=== PATIENT | male | born 1970 | race Caucasian/White ===

== ENCOUNTER 2018-03-07 07:00 | Inpatient (IN) | payer OTHER ==
--- NOTE | 2018-03-03 11:05 | PREOPHP ---
DATE OF ADMISSION: 03/07/2018 REASON FOR CONSULTATION: Consultation requested by Dr. Jeremy Gray for medical evaluation and clearance of a 47-year-old gentleman about to undergo surgery. Thank you, Dr. Gray, for participating and allowing us to participate in the care of our patient. HISTORY OF PRESENT ILLNESS: Brain Hoffman is a 47-year-old gentleman, issues with his right hip, has had prior surgery on that and currently is being admitted for a total hip replacement on that side. In terms of his past medical and surgical history; from a medical standpoint had a hospitalization due to sepsis 2nd to an abscess and cellulitis ,for intravenous antibiotic treatment and from which he recovered. From a surgical standpoint, he has had right and left arthroscopic surgeries for torn labrum both hips, right and left, pilonidal cyst surgery. Also had an I and D of the abscess, as mentioned above, also had anal surgery. He has fractured his right ankle in the past. MEDICATIONS: 1. Levothyroxine or Synthroid 137 mcg a day. 2. Lipitor 20 mg a day. 3. Cymbalta 60 mg a day. 4. Singulair 10 mg a day. 5. Wellbutrin 450 mg daily. ALLERGIES: HE IS NOT ALLERGIC TO ANY MEDICATIONS. SOCIAL HISTORY: The patient is , has a daughter. He does not smoke or drink alcohol or coffee, is employed and usually has no difficulty sleeping at night. FAMILY HISTORY: Father in his 30s with pancreatic cancer. Mother in her 70s in good health. One sister in good health. There is family history of diabetes, cancer, hypertension, stroke and thyroid issues. REVIEW OF SYSTEMS HEENT: Denies any significant headaches. CARDIORESPIRATORY: Denies any chest pain or shortness of breath. GASTROINTESTINAL: No melena or hematemesis. GENITOURINARY: No urgency or frequency. MUSCULOSKELETAL: Positive for right hip pain. NEUROPSYCHIATRIC: Well controlled with his current medications. GENERAL HEALTH: As above. PHYSICAL EXAMINATION: VITAL SIGNS: The patient's blood pressure was 124/72, pulse was 76 and regular, respirations were 18, temperature 98.8. Height 5 feet 6 -1/2 inches, weight 198.4 pounds. GENERAL: The patient was noted to be a well-developed, well-nourished male, alert and cooperative, in no apparent acute distress, oriented to time, place, and person. HEAD, EARS, EYES, NOSE AND THROAT: Head was atraumatic. Eyes: Pupils were equal, reactive to light and accommodation. Fundi were benign. Tympanic membranes were unremarkable. Nose was negative. Mouth was unremarkable. Fair oral hygiene was present. NECK: Supple without any rigidity. Trachea was midline. Thyroid was unremarkable. Neck veins were flat. Carotid pulses were equal. No bruits were heard. BACK: Unremarkable. CHEST: Symmetrical. BREASTS AND AXILLARY: Did not reveal any masses. LUNGS: Clear to percussion and auscultation. HEART: PMI was 5th intercostal space at the midclavicular line. A regular sinus rhythm was noted. No significant murmurs, rubs, or gallops being elicited. ABDOMEN: Soft, good bowel sounds were noted. No significant organomegaly, masses, or tenderness. GENITALIA: Normal male external genitalia. RECTAL AND PROSTATIC: Done within the year was unremarkable. Did not reveal any masses. EXTREMITIES: Did not reveal any clubbing, edema or cyanosis. Peripheral pulses were physiologic. SKIN: Moist and warm without any eruptions. No gross lymphadenopathy was noted. NEUROLOGIC: Grossly intact. IMPRESSION: 1. Degenerative joint disease, right hip. 2. Hypothyroidism. 3. Hyperlipidemia. 4. Allergies/asthma. 5. Anxiety/depression, stable. 6. Stable health. LABORATORY DATA: Review of laboratory and other data revealed the following: The patient's electrolytes were normal. Random glucose was 111, BUN, creatinine, uric acid, calcium proteins were normal. Liver function tests revealed minimal elevations of ALT and AST. Cholesterol random was normal at 158, magnesium, CBC, UA, PT and PTT were normal. Patient's EKG was normal and the patient's chest x-ray did not reveal any acute infiltrates or any acute cardiopulmonary changes being noted. DISCUSSION: Dr. Gray, I see no contraindication in this patient undergoing current proposed surgery under desired form of anesthesia. I feel he is a suitable candidate at this particular point in time and I will be more than happy to follow him along with you during his stay at [facility]. Thank you again, Dr. Gray for participating and allowing us to participate in the care of our patient. Dictated By: LARRY VELAZQUEZ/YOMAIRA Conf#: [id number] [facility]#: [id number] MTDD
[2018-03-04 15:26] VITALS: Ht 170.2 cm; Wt 86.4 kg
[~2018-03-07] VITALS: Ht 170.2 cm; Wt 86.4 kg
[2018-03-07] VITALS (28 sets, daily range): BP systolic 113–156; BP diastolic 63–99; PULSE 81–113; RESP 14–26
--- NOTE | 2018-03-07 05:46 | HPN ---
Date/Time of Note Date/Time of Note DATE: 03/07/18 TIME: 05:46 Interval H&P Admission Note Pt. seen H&P reviewed: No system changes DAVIDSON HEBERT MD Mar 07, 2018 05:46
--- NOTE | 2018-03-07 05:48 | OPR ---
Date/Time of Note Date/Time of Note DATE: 03/07/18 TIME: 05:46 Operative Report Procedure Date: Mar 07, 2018 Preoperative Diagnosis Hip arthritis following hip arthroscopy, right Postoperative Diagnosis Right hip arthritis following hip arthroscopy Operation/Procedure Performed 1. Right total hip replacement in a patient status post hip arthroscopy 2. Injection of PRP Surgeon see signature line [employer] Consultant Brain Ramirez DO Anesthesia Type: general Estimated Blood Loss: 150 - 200 ml's Transfusion none Specimen None Grafts/Implants See op note Complications none Pt Condition Post Procedure: stable Disposition: PACU Procedure Description JET SKI MECHANIC SURGEON: Brain Messer DO was asked to be present at my request as a result of the complexity associated with this procedure including positioning of the extremity, positioning of the instrumentation and protection of the neurovascular structures. In my opinion, the assistance offered by a surgical nurse is insufficient and Dr. Messer should be compensated for his time. PROCEDURE IN DETAIL: Following the administration of general endotracheal anesthesia supplemented with a spinal anesthetic, the patient was placed in the supine position. The right lower extremity then prepped and draped in the usual sterile fashion. A gas appliance repairer radiograph was obtained for preliminary limb length and femoral size as well as acetabular size. Prior to sterile prep and drape the forearm was then prepped and 60 cc of blood were pulled from the vein. The blood was then given to the medical collections representative to create a PRP infusion. A lateral incision was then made exposing the tensor fascia the fascia was incised the tensor was retracted laterally and the vessels were cauterized. The anterior capsule was then identified and exposed. Severe changes were noted with scarring secondary to the prior arthroscopic procedure. Some of the sutures were removed. A capsulectomy was then performed and the femoral head was then evaluated. Severe arthritic changes were noted with several medial osteophytes as well as an acetabular osteophyte. A femoral head cut was then made in the appropriate degree of version and i nclination. The acetabulum was then exposed and a capsulectomy and labrectomy were completed. The prior scarring from the arthroscopic procedure was noted. The central portion was then entered and serially reamed up to the 53 mm size. A Depuy [place] cup which was 54 mm in size with a standard liner was then fit into position with solid fixation. A 30 mm screw was used for additional fixation. Attention was then directed to the femur, the femur was exposed and prepared. The canal was entered and serially reamed up to the size 5 Actis. The canal was irrigated and the PRP solution was then infiltrated down the canal. A size 5 mm Depuy Act[place] stem was then inserted with solid fixation. A 36 mm, +5 mm femoral head, which was ceramic was then inserted. The leg was taken through full range of motion with no evident instability. In addition, radiographs revealed excellent position with reproduction of the limb lengths within a millimeter. The wound was irrigated thoroughly. The wound was then closed in layers and a Prenio for the final cover. This was watertight. Estimated blood loss was procedure was 150 cc. Postoperative radiographs will be obtained in the recovery room. DAVIDSON HEBERT MD Mar 07, 2018 05:47
[~2018-03-07 07:00] MED LIST: BUPR-187 PO; CEFAZOLIN 2 GM/50 ML (PMX) 50 ML IVPB ONE; DEXAMETHASONE 1 MG TAB PO ONE; FLUO20CA38 PO; GABAPENTIN 300 MG CAP PO ONE; MONT10TA21 PO; SOD CHLORIDE 0.9% 100 ML, TRANEXAMIC ACID 3,000 MG IRR ONE; TRANEXAMIC ACID 1,000 MG in DEXTROSE 5% 100 ML IVPB ONE
[2018-03-07] MEDS ORDERED: PROPOFOL 20 ML ONE (08:22)
[2018-03-07] MEDS ORDERED: NEOSTIGMINE 3 MG/3 ML SYRINGE ONE (08:22)
[2018-03-07] MEDS ORDERED: CEFAZOLIN 1 GM INJ ONE (08:22)
[2018-03-07] MEDS ORDERED: ROCURONIUM 50 MG INJ ONE (08:22)
[2018-03-07] MEDS ORDERED: GLYCOPYRROLATE 0.4 MG INJ ONE (08:22)
[2018-03-07] MEDS ORDERED: ONDANSETRON 4 MG INJ ONE (08:24)
[2018-03-07] MEDS ORDERED: MIDAZOLAM 1 MG/ML 2 ML INJ ONE (08:24)
[2018-03-07] MEDS ORDERED: FENTAnyl 50 MCG/ML VIAL ONE (08:24)
[2018-03-07] MEDS ORDERED: BUPIVACAINE 0.5% (SDV) 30 ML, morphine SULFATE (PF) 8 MG, EPINEPHrine 0.3 MG, KETOROLAC... IRR SCH ×7 (09:00)
[2018-03-07] MEDS ORDERED: SUGAMMADEX SODIUM 200 MG/2 ML VIAL IV ONE (09:01)
[2018-03-07] MEDS ORDERED: MONT10TA21 PO (09:02)
[2018-03-07] MEDS ORDERED: ATOR20TA38 PO (09:02)
[2018-03-07] MEDS ORDERED: LEVO137T26 PO (09:03)
[2018-03-07] MEDS ORDERED: DULO60CA6 PO (09:04)
[2018-03-07] MEDS ORDERED: BUPR-75 PO (09:04)
--- NOTE | 2018-03-07 09:23 | PREAC ---
Date/Time of Note Date/Time of Note DATE: 03/07/18 TIME: 09:21 Anesthesia Eval and Record Evaluation Time Pre-Procedure Interview DATE: 03/07/18 TIME: 09:21 Age 47 Sex male NPO: 8 hrs Preoperative diagnosis RIGHT HIP PRIMARY OA Planned procedure RIGHT TOTAL HIP ARTHROPLASTY Past Medical History Past Medical History: Includes (PSEUDOCHOLIESTERASE DEFICIENCY) Cardio: Dyslipidemia Endo: Hypothyroid Pulm: Asthma GI: Obesity Surgery & Anesthesia Issues No known issue Meds Anticoagulation: No Beta Anjali within 24 hr: No Reason Beta Anjali not given: Pt. not on B-Anjali Reported Medications Bupropion Hcl* (Wellbutrin XL*) 150 Mg Tab.sr.24h, 450 MG PO DAILY, TAB.SA 03/07/18 Duloxetine Hcl* (Cymbalta*) 60 Mg Capsule.dr, 60 MG PO DAILY, CAP 03/07/18 Levothyroxine Sodium* (Levoxyl*) 137 Mcg Tablet, 137 MCG PO QHS, #30 TAB 03/07/18 Atorvastatin Calcium* (Atorvastatin Calcium*) 20 Mg Tablet, 20 MG PO QHS, #30 TAB 03/07/18 Montelukast Sodium* (Singulair*) 10 Mg Tablet, 10 MG PO QHS, #30 TAB 03/07/18 Discontinued Reported Medications Bupropion Hcl* (Wellbutrin SR*) 100 Mg Tablet.sa, 100 MG PO DAILY, TAB.SA 11/06/13 Fluoxetine Hcl* (Prozac*) 20 Mg Capsule, 20 MG PO DAILY, CAP 11/06/13 Montelukast Sodium* (Singulair*) 10 Mg Tablet, 10 MG PO HS, TAB 11/06/13 Current Medications Bupivacaine HCl/ Morphine Sulfate/ Epinephrine/ Ketorolac Tromethamine/ Clonidine/Sodium Chloride/ Vancomycin HCl INTRA-OP IRR ; Start 03/07/18 at 09:00 Meds reviewed: Yes Allergies Coded Allergies: acetaminophen (Verified Allergy, Intermediate, ITCHING, 03/07/18) oxycodone (Verified Allergy, Intermediate, 03/07/18) itching Allergies Reviewed: Yes Labs/Studies Labs Reviewed: Reviewed by anesthesiologist test: N/A Studies: ECG (NL), CXR (NAPD) Pre-procedure Exam Last vitals Vital Signs Date Temp Pulse Resp B/P (MAP) Pulse Ox O2 O2 Flow FiO2 Time Delivery Rate 03/07/18 97.3 87 16 124/83 97 Room Air 09:04 (97) Airway: Adequate mouth opening, Adequate thyromental dist Mallampati: Mallampati II Teeth: Normal Lung: Normal Heart: Normal ASA Physical Status ASA physical status: 2 Emergency: None Planned Anesthetic General/MAC: ETT Neuraxial: Spinal Planned Pain Management Sub-arachniod narcotics, Parenteral pain med Pre-operative Attestations Prior to commencing anesthesia and surgery, the patient was re-evaluated, there was verification of: *The patient's identity *The results of appropriate recent lab work and preoperative vital signs *The above evaluation not changing prior to induction *Anesthetic plan, risk benefits, alternative and complications discussed with patient/family; questions answered; patient/family understands, accepts and wishes to proceed. Sukhdev Birmingham M.D. Mar 07, 2018 09:23
[2018-03-07] MEDS ORDERED: CA CHLORIDE (GM) 10% 10 ML INJ ONE (09:28)
[2018-03-07] MEDS ORDERED: POLYMYXIN/BACITRACIN 1L IRRIG ONE (09:28)
[2018-03-07] MEDS ORDERED: THROMBIN 5000 UNIT VIAL ONE (09:28)
[2018-03-07] MEDS ORDERED: morphine SULFATE/PF (10 MG/10 ML) INJ ONE (09:38)
[2018-03-07] MEDS ORDERED: PHENYLephrine 10 MG INJ ONE (10:18)
[2018-03-07] MEDS ORDERED: EPHEDrine SULFATE 50 MG/5 ML SYG IV PRN (10:30)
[2018-03-07] MEDS ORDERED: HYDROmorphONE 0.5 MG/0.5 ML SYG IV PRN ×2 (10:30)
[2018-03-07] MEDS ORDERED: MEPERIDINE 25 MG INJ IV PRN (10:30)
[2018-03-07] MEDS ORDERED: hydrALAzine 20 MG INJ IV PRN (10:30)
[2018-03-07] MEDS ORDERED: LABETALOL HCL 20MG INJ IV PRN (10:30)
[2018-03-07] MEDS ORDERED: TRIMETHOBENZAMIDE 100 MG/ML VIAL IM PRN ×2 (10:30)
[2018-03-07] MEDS ORDERED: HYDROmorphONE 1 MG/5 ML IV SYRINGE IV PRN ×3 (10:30)
[2018-03-07] MEDS ORDERED: ZOLPIDEM 5 MG TAB PO PRN ×2 (10:30→21:00)
[2018-03-07] MEDS ORDERED: NALOXONE (0.4 MG/ML) INJ IV PRN (10:30)
[2018-03-07] MEDS ORDERED: ONDANSETRON 4 MG INJ IV PRN ×3 (10:30→11:30)
[2018-03-07] MEDS ORDERED: DIPHENHYDRAMINE 50 MG INJ IV PRN ×3 (10:30→11:30)
[2018-03-07] MEDS ORDERED: NALBUPHINE HCL (10 MG/1 ML) INJ IV PRN (10:30)
[2018-03-07] MEDS ORDERED: IPRATROPIUM (NEB) 0.5 MG/2.5 ML AMP HHN PRN (10:30)
[2018-03-07] MEDS ORDERED: KETOROLAC 30 MG INJ IV PRN (10:30)
[2018-03-07] MEDS ORDERED: FENTAnyl 50 MCG/ML VIAL IV PRN ×3 (10:30)
[2018-03-07] MEDS ORDERED: MIDAZOLAM 1 MG/ML 2 ML INJ IV PRN (10:30)
[2018-03-07] MEDS ORDERED: ALBUTEROL 0.083% (NEB) 2.5 MG/3 ML AMP HHN PRN (10:30)
[2018-03-07] MEDS ORDERED: DEXAMETHASONE 4 MG/ML 5 ML INJ ONE (10:31)
--- NOTE | 2018-03-07 11:18 | PDOCDIS ---
Discharge Instructions DIAGNOSIS Discharge Diagnosis Hip arthritis CONDITION [id number] Patient Condition: Acmro0h Good HOME CARE INSTRUCTIONS: [id number] Diet Instructions: [id number] Regular ACTIVITY: [id number] Activity Restrictions: [id number] Slowly Increase Activity Keep Limb Elevated [id number] Bathing Restrictions: [id number] Shower FOLLOW UP/APPOINTMENTS Follow-up Plan two weeks SCHOOL/WORK RELEASE May return to School/Work with: With Restrictions School/Work Release Comment: No hip extension for 6-week DAVIDSON HEBERT MD Mar 07, 2018 11:18
--- NOTE | 2018-03-07 11:28 | PAC ---
Date/Time of Note Date/Time of Note DATE: 03/07/18 TIME: 11:28 Post-Anesthesia Notes Post-Anesthesia Note Last documented vital signs Vital Signs Date Temp Pulse Resp B/P (MAP) Pulse Ox O2 O2 Flow FiO2 Time Delivery Rate 03/07/18 97.3 87 16 124/83 97 Room Air 11:28 (97) Activity: WNL Respiratory function: WNL Cardiovascular function: WNL Mental status: Baseline Pain reasonably controlled: Yes Hydration appropriate: Yes Nausea/Vomiting absent: Yes Sukhdev Birmingham M.D. Mar 07, 2018 11:28
[2018-03-07] MEDS ORDERED: HYDROmorphONE 1 MG/ML SYG IV PRN (11:30)
[2018-03-07] MEDS ORDERED: NACL 0.9% 3 ML SYG IV SCH (11:30)
[2018-03-07] MEDS ORDERED: KETOROLAC 15 MG INJ IV PRN (11:30)
[2018-03-07] MEDS ORDERED: oxyCODONE 5 MG TAB PO PRN ×3 (11:30)
[2018-03-07] MEDS ORDERED: TRANEXAMIC ACID 1,000 MG in SOD CHLORIDE 0.9% 100 ML IVPB SCH (11:30)
[2018-03-07] MEDS ORDERED: CEFAZOLIN 1 GM/50 ML (PMX) 50 ML IVPB ONE (11:48)
[2018-03-07] MEDS: CEFAZOLIN 1 GM/50 ML (PMX) 50 ML IVPB SCH ×2 (11:56→18:43)
[2018-03-07] MEDS ORDERED: ACETAMINOPHEN 500 MG TAB ONE (11:58)
[2018-03-07] MEDS: ACETAMINOPHEN 500 MG TAB PO SCH ×2 (12:15→17:51)
[2018-03-07] MEDS: DEXAMETHASONE 2 MG TAB PO SCH ×3 (12:28→23:31)
--- NOTE | 2018-03-07 13:05 | NUR ---
NRSG NOTE Pt received to room 409. A/ox4. Right hip with prenio clear dressing. Dry and intact. Kessler catheter with clear yellow urine and draining to gravity. Pt on 2L 02 saturating 98%. Jevon hose to bilateral lower extremity removed and skin check done SCD to bilateral lower extremity. Pt denies pain. Oriented pt to call light and to bed alarm. Bed in lowest position and call light within reach.
[2018-03-07] MEDS ORDERED: traMADol 50 MG TAB PO PRN (13:30)
[2018-03-07] MEDS ORDERED: LACTATED RINGER'S 1,000 ML IV SCH (13:30)
--- NOTE | 2018-03-07 17:35 | CONS ---
Consult Date/Type/Reason Admit Date/Time Mar 07, 2018 at 07:58 Initial Consult Date 02/28/2018 Type of Consultation: internal medicine Reason for Consultation pre-op medical evaluation and clearance Requesting Provider: DAVIDSON HEBERT MD Date/Time of Note DATE: 03/07/18 TIME: 17:29 Subjective comfortable post op Objective Vitals Vital Signs Date Temp Pulse Resp B/P (MAP) Pulse Ox O2 O2 Flow FiO2 Time Delivery Rate 03/07/18 98.0 97 18 124/75 98 Nasal 2.0 14:39 (91) Cannula Exam vital signs stable HEENT negative lungs clear heart regular rhythm Results/Medications Result Diagram: 03/07/18 1225 Results 24 hrs Laboratory Tests Test 03/07/18 12:25 White Blood Count 9.6 Red Blood Count 4.40 L Hemoglobin 12.8 L Hematocrit 38.3 L Mean Corpuscular Volume 87.0 Mean Corpuscular Hemoglobin 29.1 Mean Corpuscular Hemoglobin Concent 33.4 Red Cell Distribution Width 12.2 Platelet Count 188 Mean Platelet Volume 9.2 Immature Granulocytes % 0.700 H Neutrophils % 78.3 H Lymphocytes % 17.1 Monocytes % 3.2 Eosinophils % 0.5 Basophils % 0.2 Nucleated Red Blood Cells % 0.0 Immature Granulocytes # 0.070 H Neutrophils # 7.5 Lymphocytes # 1.7 Monocytes # 0.3 Eosinophils # 0.1 Basophils # 0.0 Nucleated Red Blood Cells # 0.0 Home Meds Reported Medications Bupropion Hcl* (Wellbutrin XL*) 150 Mg Tab.sr.24h, 450 MG PO DAILY, TAB.SA 03/07/18 Duloxetine Hcl* (Cymbalta*) 60 Mg Capsule.dr, 60 MG PO DAILY, CAP 03/07/18 Levothyroxine Sodium* (Levoxyl*) 137 Mcg Tablet, 137 MCG PO QHS, #30 TAB 03/07/18 Atorvastatin Calcium* (Atorvastatin Calcium*) 20 Mg Tablet, 20 MG PO QHS, #30 TAB 03/07/18 Montelukast Sodium* (Singulair*) 10 Mg Tablet, 10 MG PO QHS, #30 TAB 03/07/18 Discontinued Reported Medications Bupropion Hcl* (Wellbutrin SR*) 100 Mg Tablet.sa, 100 MG PO DAILY, TAB.SA 11/06/13 Fluoxetine Hcl* (Prozac*) 20 Mg Capsule, 20 MG PO DAILY, CAP 11/06/13 Montelukast Sodium* (Singulair*) 10 Mg Tablet, 10 MG PO HS, TAB 11/06/13 Medications Current Medications Hydromorphone HCl (Dilaudid) 0.2 mg Q2H PRN IV .PAIN 1-5; Start 03/07/18 at 10:30; Stop 03/08/18 at 09:41 Hydromorphone HCl (Dilaudid) 0.4 mg Q2H PRN IV .PAIN 6-10; Start 03/07/18 at 10:30; Stop 03/08/18 at 09:41 Ketorolac Tromethamine (Toradol) 30 mg Q6H PRN IV .PAIN 6-10; Start 03/07/18 at 10:30; Stop 03/08/18 at 09:41 Diphenhydramine HCl (Benadryl) 25 mg Q4H PRN IV .PRURITUS; Start 03/07/18 at 10:30; Stop 03/08/18 at 09:41 Nalbuphine HCl (Nubain) 10 mg Q4H PRN IV .PRURITUS; Start 03/07/18 at 10:30; Stop 03/08/18 at 09:41 Ondansetron HCl (Zofran Inj) 4 mg Q6H PRN IV .NAUSEA/VOMITING; Start 03/07/18 a t 10:30; Stop 03/08/18 at 09:41 Trimethobenzamide HCl (Tigan) 200 mg Q6H PRN IM .NAUSEA/VOMITING; Start 03/07/18 at 10:30; Stop 03/08/18 at 09:41 Zolpidem Tartrate (Ambien) 5 mg HS MAY REPEAT X 1 PRN PO .INSOMNIA; Start 03/07/18 at 10:30; Stop 03/08/18 at 09:41 Naloxone HCl (Narcan) 0.2 mg Q2M PRN IV .RESP RATE; Start 03/07/18 at 10:30; Stop 03/08/18 at 09:41 Miscellaneous Information (* Miscellaneous Pharmacy Order) DURAMORPH: 0.2 MG SPI... GIVEN NEURAXIAL XX ; Start 03/07/18 at 10:30 Atorvastatin Calcium (Lipitor) 20 mg QHS PO ; Start 03/07/18 at 21:00 Bupropion HCl (Wellbutrin Xl) 450 mg DAILY PO ; Start 03/08/18 at 09:00 Duloxetine HCl (Cymbalta) 60 mg DAILY PO ; Start 03/08/18 at 09:00 Levothyroxine Sodium (Synthroid) 137 mcg QHS PO ; Start 03/07/18 at 21:00 Montelukast Sodium (Singulair) 10 mg QHS PO ; Start 03/07/18 at 21:00 Cefazolin Sodium 50 ml @ 100 mls/hr Q8H IVPB Last administered on 03/07/18at 11:56; Admin Dose 100 MLS/HR; Start 03/07/18 at 11:30; Stop 03/08/18 at 03:59 Senna/Docusate Sodium (Senokot-S) 1 tab BID PO ; Start 03/07/18 at 21:00 Dexamethasone (Decadron) 2 mg Q6 PO Last administered on 03/07/18at 12:28; Admin Dose 2 MG; Start 03/07/18 at 12:00; Stop 03/08/18 at 06:01 Gabapentin (Neurontin) 300 mg HS PO ; Start 03/07/18 at 21:00 Acetaminophen (Tylenol Tab) 500 mg Q6 PO Last administered on 03/07/18at 12:15; Admin Dose 500 MG; Start 03/07/18 at 12:00 Hydromorphone HCl (Dilaudid) 1 mg Q4H PRN IV PAIN; Start 03/07/18 at 11:30 Ondansetron HCl (Zofran Inj) 4 mg Q6H PRN IV NAUSEA; Start 03/07/18 at 11:30 Diphenhydramine HCl (Benadryl) 25 mg Q6H PRN IV ITCHING; Start 03/07/18 at 11:30 IV Flush (NS 3 ml) 3 ml per protocol IV ; Start 03/07/18 at 11:30 Aspirin (Ecotrin) 325 mg DAILY PO ; Start 03/08/18 at 09:00 Ketorolac Tromethamine (Toradol) 15 mg Q6H PRN IV PAIN; Start 03/08/18 at 09:41; Stop 03/11/18 at 09:40 Tramadol HCl (Ultram) 50 mg Q6H PRN PO MODERATE PAIN LEVEL 4-6; Start 03/07/18 at 13:30 Lactated Ringer's 1,000 ml @ 50 mls/hr Q20H IV Last administered on 03/07/18at 13:43; Admin Dose 50 MLS/HR; Start 03/07/18 at 13:30 Zolpidem Tartrate (Ambien) 10 mg HS PRN PO INSOMNIA; Start 03/08/18 at 21:00 Assessment/Plan Hospital Course (Demo Recall) post -op hip replacement with hypothyroidism hyperlipidemia doing well Assessment/Plan (Daily) pre-op meds reordered will follow with you thank you LARRY Morejon MD Mar 07, 2018 17:35
--- NOTE | 2018-03-07 18:34 | NUR ---
END OF SHIFT NOTE Denied pain during shift. Kessler catheter draining to gravity. Tolerated regular diet well. Vitals stable. Ice applied to right hip. SCD to bilateral lower extremity. Bed in lowest position and call light within reach.
[2018-03-07] MEDS ORDERED: GABAPENTIN 300 MG CAP PO SCH (21:00)
[2018-03-07] MEDS ORDERED: MONTELUKAST 10 MG TAB PO SCH (21:00)
[2018-03-07] MEDS ORDERED: LEVOTHYROXINE 137 MCG TAB PO SCH (21:00)
[2018-03-07] MEDS ORDERED: ATORVASTATIN 20 MG TAB PO SCH (21:00)
[2018-03-07] MEDS: SENNA/DOCUSATE NA (8.6MG/50MG) TAB PO SCH (21:26)
[2018-03-08 00:02] VITALS: BP 107/69; PULSE 100; RESP 20
[2018-03-08] MEDS: CEFAZOLIN 1 GM/50 ML (PMX) 50 ML IVPB SCH (03:47)
--- NOTE | 2018-03-08 05:46 | PN ---
Date/Time of Note Date/Time of Note DATE: 03/08/18 TIME: 05:45 Subjective Awake and alert with minimal complaints Objective Vitals Vital Signs Date Temp Pulse Resp B/P (MAP) Pulse Ox O2 O2 Flow FiO2 Time Delivery Rate 03/08/18 98.3 100 20 107/69 Nasal 00:02 (82) Cannula 03/07/18 2.0 15:45 03/07/18 99 15:00 Intake and Output 03/07/18 03/07/18 03/08/18 1414:59 22:59 06:59 IntakeIntake Total 2560 ml 1040 ml 880 ml OutputOutput Total 300 ml 400 ml 2100 ml BalanceBalance 2260 ml 640 ml -1220 ml Wound is clean and dry. Neurologically intact. No signs of DVT. Results Result Diagram: 03/07/18 1225 Medications Medications Current Medications Hydromorphone HCl (Dilaudid) 0.2 mg Q2H PRN IV .PAIN 1-5; Start 03/07/18 at 10:30; Stop 03/08/18 at 09:41 Hydromorphone HCl (Dilaudid) 0.4 mg Q2H PRN IV .PAIN 6-10; Start 03/07/18 at 10:30; Stop 03/08/18 at 09:41 Ketorolac Tromethamine (Toradol) 30 mg Q6H PRN IV .PAIN 6-10 Last administered on 03/08/18at 00:35; Admin Dose 30 MG; Start 03/07/18 at 10:30; Stop 03/08/18 at 09:41 Diphenhydramine HCl (Benadryl) 25 mg Q4H PRN IV .PRURITUS; Start 03/07/18 at 10:30; Stop 03/08/18 at 09:41 Nalbuphine HCl (Nubain) 10 mg Q4H PRN IV .PRURITUS; Start 03/07/18 at 10:30; Stop 03/08/18 at 09:41 Ondansetron HCl (Zofran Inj) 4 mg Q6H PRN IV .NAUSEA/VOMITING; Start 03/07/18 at 10:30; Stop 03/08/18 at 09:41 Trimethobenzamide HCl (Tigan) 200 mg Q6H PRN IM .NAUSEA/VOMITING; Start 03/07/18 at 10:30; Stop 03/08/18 at 09:41 Zolpidem Tartrate (Ambien) 5 mg HS MAY REPEAT X 1 PRN PO .INSOMNIA; Start 03/07/18 at 10:30; Stop 03/08/18 at 09:41 Naloxone HCl (Narcan) 0.2 mg Q2M PRN IV .RESP RATE; Start 03/07/18 at 10:30; Stop 03/08/18 at 09:41 Miscellaneous Information (* Miscellaneous Pharmacy Order) DURAMORPH: 0.2 MG SPI... GIVEN NEURAXIAL XX ; Start 03/07/18 at 10:30 Atorvastatin Calcium (Lipitor) 20 mg QHS PO Last administered on 03/07/18 21:26; Admin Dose 20 MG; Start 03/07/18 at 21:00 Bupropion HCl (Wellbutrin Xl) 450 mg DAILY PO ; Start 03/08/18 at 09:00 Duloxetine HCl (Cymbalta) 60 mg DAILY PO ; Start 03/08/18 at 09:00 Levothyroxine Sodium (Synthroid) 137 mcg QHS PO Last administered on 03/07/18 21:27; Admin Dose 137 MCG; Start 03/07/18 at 21:00 Montelukast Sodium (Singulair) 10 mg QHS PO Last administered on 03/07/18 21:41; Admin Dose 10 MG; Start 03/07/18 at 21:00 Senna/Docusate Sodium (Senokot-S) 1 tab BID PO Last administered on 03/07/18 21:26; Admin Dose 1 TAB; Start 03/07/18 at 21:00 Dexamethasone (Decadron) 2 mg Q6 PO Last administered on 03/07/18at 23:31; Admin Dose 2 MG; Start 03/07/18 at 12:00; Stop 03/08/18 at 06:01 Gabapentin (Neurontin) 300 mg HS PO Last administered on 03/07/18 21:27; Admin Dose 300 MG; Start 03/07/18 at 21:00 Acetaminophen (Tylenol Tab) 500 mg Q6 PO Last administered on 03/07/18at 17:51; Admin Dose 500 MG; Start 03/07/18 at 12:00 Hydromorphone HCl (Dilaudid) 1 mg Q4H PRN IV PAIN; Start 03/07/18 at 11:30 Ondansetron HCl (Zofran Inj) 4 mg Q6H PRN IV NAUSEA; Start 03/07/18 at 11:30 Diphenhydramine HCl (Benadryl) 25 mg Q6H PRN IV ITCHING; Start 03/07/18 at 11:30 IV Flush (NS 3 ml) 3 ml per protocol IV ; Start 03/07/18 at 11:30 Aspirin (Ecotrin) 325 mg DAILY PO ; Start 03/08/18 at 09:00 Ketorolac Tromethamine (Toradol) 15 mg Q6H PRN IV PAIN; Start 03/08/18 at 09:41; Stop 03/11/18 at 09:40 Tramadol HCl (Ultram) 50 mg Q6H PRN PO MODERATE PAIN LEVEL 4-6; Start 03/07/18 at 13:30 Lactated Ringer's 1,000 ml @ 50 mls/hr Q20H IV Last administered on 03/07/18at 13:43; Admin Dose 50 MLS/HR; Start 03/07/18 at 13:30 Zolpidem Tartrate (Ambien) 10 mg HS PRN PO INSOMNIA; Start 03/08/18 at 21:00 VTE Prophylaxis Risk score (from Nsg)>0 risk: 10 SCD applied (from Nsg): Yes Lines/Catheters IV Catheter Type: Saline Lock Kessler in Place: No Assessment/Plan Assessment/Plan Assessment: Status post total hip replacement Plan: He will mobilize today and be discharged once cleared by therapy DAVIDSON HEBERT MD Mar 08, 2018 05:46
--- NOTE | 2018-03-08 05:46 | DS ---
Date/Time of Note Date/Time of Note DATE: 03/08/18 TIME: 05:46 Discharge Summary Admission/Discharge Info Admit Date/Time Mar 07, 2018 at 07:58 Discharge Date/Time 03/08/2018 after therapy Discharge Diagnosis Hip arthritis Patient Condition: Good Hospital Course Admitted and underwent uncomplicated procedure. Discharged home after clearance by therapy Home Meds Reported Medications Bupropion Hcl* (Wellbutrin XL*) 150 Mg Tab.sr.24h, 450 MG PO DAILY, TAB.SA 03/07/18 Duloxetine Hcl* (Cymbalta*) 60 Mg Capsule.dr, 60 MG PO DAILY, CAP 03/07/18 Levothyroxine Sodium* (Levoxyl*) 137 Mcg Tablet, 137 MCG PO QHS, #30 TAB 03/07/18 Atorvastatin Calcium* (Atorvastatin Calcium*) 20 Mg Tablet, 20 MG PO QHS, #30 TAB 03/07/18 Montelukast Sodium* (Singulair*) 10 Mg Tablet, 10 MG PO QHS, #30 TAB 03/07/18 Discontinued Reported Medications Bupropion Hcl* (Wellbutrin SR*) 100 Mg Tablet.sa, 100 MG PO DAILY, TAB.SA 11/06/13 Fluoxetine Hcl* (Prozac*) 20 Mg Capsule, 20 MG PO DAILY, CAP 11/06/13 Montelukast Sodium* (Singulair*) 10 Mg Tablet, 10 MG PO HS, TAB 11/06/13 Follow-up Plan two weeks Primary Care Provider Chente Montilla MD Pending Labs Laboratory Tests Test 03/07/18 12:25 White Blood Count 9.6 10^3/ul (4.8-10.8) Red Blood Count 4.40 10^6/ul (4.70-6.10) Hemoglobin 12.8 g/dl (14.0-18.0) Hematocrit 38.3 % (42.0-52.0) Mean Corpuscular Volume 87.0 fl (82.0-101.0) Mean Corpuscular Hemoglobin 29.1 pg (29.0-33.0) Mean Corpuscular Hemoglobin Concent 33.4 g/dl (32.0-37.0) Red Cell Distribution Width 12.2 % (11.5-14.5) Platelet Count 188 10^3/UL (140-415) Mean Platelet Volume 9.2 fl (7.4-10.4) Immature Granulocytes % 0.700 % (0.001-0.429) Neutrophils % 78.3 % (39.0-77.0) Lymphocytes % 17.1 % (15.0-51.0) Monocytes % 3.2 % (0.0-11.0) Eosinophils % 0.5 % (0.0-7.0) Basophils % 0.2 % (0.0-2.0) Nucleated Red Blood Cells % 0.0 /100WBC (0.0-0.0) Immature Granulocytes # 0.070 10^3/ul (0.0-0.031) Neutrophils # 7.5 10^3/ul (1.6-7.5) Lymphocytes # 1.7 10^3/ul (0.8-2.9) Monocytes # 0.3 10^3/ul (0.3-0.9) Eosinophils # 0.1 10^3/ul (0.0-0.5) Basophils # 0.0 10^3/ul (0.0-0.1) Nucleated Red Blood Cells # 0.0 10^3/ul (0.0-0.0) DAVIDSON HEBERT MD Mar 08, 2018 05:46
--- NOTE | 2018-03-08 06:00 | NUR ---
RN EOSS NOTES: Patient slept well through this shift, medicate done with Ketorolac IV with good pain relief. Afebrile, tolerating regular diet well. Prineo dressing to surgical site remains C/D/I, no drainage noted. Awaiting to be seen by PT today. Kessler catheter has been discontinued, will be due to void by [id number]. Will endorse plan of care to incoming day RN at shift-change.
[2018-03-08] MEDS: ACETAMINOPHEN 500 MG TAB PO SCH ×3 (06:11→12:55)
[2018-03-08] MEDS: DEXAMETHASONE 2 MG TAB PO SCH (06:11)
--- NOTE | 2018-03-08 07:37 | CONS ---
Consult Date/Type/Reason Admit Date/Time Mar 07, 2018 at 07:58 Initial Consult Date 02/28/2018 Type of Consultation: internal medicine Reason for Consultation post-op medical f/u Requesting Provider: DAVIDSON HEBERT MD Date/Time of Note DATE: 03/08/18 TIME: 07:34 Subjective more alert still has a little pain Objective Vitals Vital Signs Date Temp Pulse Resp B/P (MAP) Pulse Ox O2 O2 Flow FiO2 Time Delivery Rate 03/08/18 98.3 100 20 107/69 Nasal 00:02 (82) Cannula 03/07/18 2.0 15:45 03/07/18 99 15:00 Intake and Output 03/07/18 03/07/18 03/08/18 1515:00 23:00 07:00 IntakeIntake Total 2560 ml 1040 ml 1530 ml OutputOutput Total 300 ml 400 ml 2100 ml BalanceBalance 2260 ml 640 ml -570 ml Exam vital signs stable HEENT negative lungs clear heart regular rhythm Results/Medications Result Diagram: 03/08/18 0501 Results 24 hrs Laboratory Tests Test 03/07/18 12:25 03/08/18 05:01 03/08/18 06:42 White Blood Count 9.6 12.4 #H Red Blood Count 4.40 L 3.80 L Hemoglobin 12.8 L 11.1 L Hematocrit 38.3 L 33.1 L Mean Corpuscular Volume 87.0 87.1 Mean Corpuscular Hemoglobin 29.1 29.2 Mean Corpuscular 33.4 33.5 Hemoglobin Concent Red Cell Distribution Width 12.2 12.3 Platelet Count 188 176 Mean Platelet Volume 9.2 9.7 Immature Granulocytes % 0.700 H 0.500 H Neutrophils % 78.3 H 86.3 H Lymphocytes % 17.1 6.5 L Monocytes % 3.2 6.6 Eosinophils % 0.5 0.0 Basophils % 0.2 0.1 Nucleated Red Blood Cells % 0.0 0.0 Immature Granulocytes # 0.070 H 0.060 H Neutrophils # 7.5 10.7 H Lymphocytes # 1.7 0.8 Monocytes # 0.3 0.8 Eosinophils # 0.1 0.0 Basophils # 0.0 0.0 Nucleated Red Blood Cells # 0.0 0.0 Lab Scanned Report REFERENCE LAB Home Meds Reported Medications Bupropion Hcl* (Wellbutrin XL*) 150 Mg Tab.sr.24h, 450 MG PO DAILY, TAB.SA 03/07/18 Duloxetine Hcl* (Cymbalta*) 60 Mg Capsule.dr, 60 MG PO DAILY, CAP 03/07/18 Levothyroxine Sodium* (Levoxyl*) 137 Mcg Tablet, 137 MCG PO QHS, #30 TAB 03/07/18 Atorvastatin Calcium* (Atorvastatin Calcium*) 20 Mg Tablet, 20 MG PO QHS, #30 TAB 03/07/18 Montelukast Sodium* (Singulair*) 10 Mg Tablet, 10 MG PO QHS, #30 TAB 03/07/18 Discontinued Reported Medications Bupropion Hcl* (Wellbutrin SR*) 100 Mg Tablet.sa, 100 MG PO DAILY, TAB.SA 11/06/13 Fluoxetine Hcl* (Prozac*) 20 Mg Capsule, 20 MG PO DAILY, CAP 11/06/13 Montelukast Sodium* (Singulair*) 10 Mg Tablet, 10 MG PO HS, TAB 11/06/13 Medications Current Medications Hydromorphone HCl (Dilaudid) 0.2 mg Q2H PRN IV .PAIN 1-5; Start 03/07/18 at 10:30; Stop 03/08/18 at 09:41 Hydromorphone HCl (Dilaudid) 0.4 mg Q2H PRN IV .PAIN 6-10; Start 03/07/18 at 10:30; Stop 03/08/18 at 09:41 Ketorolac Tromethamine (Toradol) 30 mg Q6H PRN IV .PAIN 6-10 Last administered on 03/08/18at 00:35; Admin Dose 30 MG; Start 03/07/18 at 10:30; Stop 03/08/18 at 09:41 Diphenhydramine HCl (Benadryl) 25 mg Q4H PRN IV .PRURITUS; Start 03/07/18 at 10:30; Stop 03/08/18 at 09:41 Nalbuphine HCl (Nubain) 10 mg Q4H PRN IV .PRURITUS; Start 03/07/18 at 10:30; Stop 03/08/18 at 09:41 Ondansetron HCl (Zofran Inj) 4 mg Q6H PRN IV .NAUSEA/VOMITING; Start 03/07/18 at 10:30; Stop 03/08/18 at 09:41 Trimethobenzamide HCl (Tigan) 200 mg Q6H PRN IM .NAUSEA/VOMITING; Start 03/07/18 at 10:30; Stop 03/08/18 at 09:41 Zolpidem Tartrate (Ambien) 5 mg HS MAY REPEAT X 1 PRN PO .INSOMNIA; Start 03/07/18 at 10:30; Stop 03/08/18 at 09:41 Naloxone HCl (Narcan) 0.2 mg Q2M PRN IV .RESP RATE; Start 03/07/18 at 10:30; Stop 03/08/18 at 09:41 Miscellaneous Information (* Miscellaneous Pharmacy Order) DURAMORPH: 0.2 MG SPI... GIVEN NEURAXIAL XX ; Start 03/07/18 at 10:30 Atorvastatin Calcium (Lipitor) 20 mg QHS PO Last administered on 03/07/18 21:26; Admin Dose 20 MG; Start 03/07/18 at 21:00 Bupropion HCl (Wellbutrin Xl) 450 mg DAILY PO ; Start 03/08/18 at 09:00 Duloxetine HCl (Cymbalta) 60 mg DAILY PO ; Start 03/08/18 at 09:00 Levothyroxine Sodium (Synthroid) 137 mcg QHS PO Last administered on 03/07/18 21:27; Admin Dose 137 MCG; Start 03/07/18 at 21:00 Montelukast Sodium (Singulair) 10 mg QHS PO Last administered on 03/07/18 21:41; Admin Dose 10 MG; Start 03/07/18 at 21:00 Senna/Docusate Sodium (Senokot-S) 1 tab BID PO Last administered on 03/07/18 21:26; Admin Dose 1 TAB; Start 03/07/18 at 21:00 Gabapentin (Neurontin) 300 mg HS PO Last administered on 03/07/18 21:27; Admin Dose 300 MG; Start 03/07/18 at 21:00 Acetaminophen (Tylenol Tab) 500 mg Q6 PO Last administered on 03/08/18at 06:11; Admin Dose 500 MG; Start 03/07/18 at 12:00 Hydromorphone HCl (Dilaudid) 1 mg Q4H PRN IV PAIN; Start 03/07/18 at 11:30 Ondansetron HCl (Zofran Inj) 4 mg Q6H PRN IV NAUSEA; Start 03/07/18 at 11:30 Diphenhydramine HCl (Benadryl) 25 mg Q6H PRN IV ITCHING; Start 03/07/18 at 11:30 IV Flush (NS 3 ml) 3 ml per protocol IV ; Start 03/07/18 at 11:30 Aspirin (Ecotrin) 325 mg DAILY PO ; Start 03/08/18 at 09:00 Ketorolac Tromethamine (Toradol) 15 mg Q6H PRN IV PAIN; Start 03/08/18 at 09:41; Stop 03/11/18 at 09:40 Tramadol HCl (Ultram) 50 mg Q6H PRN PO MODERATE PAIN LEVEL 4-6; Start 03/07/18 at 13:30 Lactated Ringer's 1,000 ml @ 50 mls/hr Q20H IV Last administered on 03/07/18at 13:43; Admin Dose 50 MLS/HR; Start 03/07/18 at 13:30 Zolpidem Tartrate (Ambien) 10 mg HS PRN PO INSOMNIA; Start 03/08/18 at 21:00 Assessment/Plan Hospital Course (Demo Recall) post -op hip replacement with hypothyroidism hyperlipidemia doing well Assessment/Plan (Daily) plan per Dr. Hebert medically stable [facility] Mar 08, 2018 07:37
[2018-03-08 08:23] VITALS: BP 120/64; PULSE 70; RESP 18
[2018-03-08] MEDS ORDERED: DULOXETINE 30 MG CAP DR PO SCH (09:00)
[2018-03-08] MEDS ORDERED: ASPIRIN (EC) 325 MG TAB PO SCH (09:00)
[2018-03-08] MEDS ORDERED: BUPROPION (XL) 150 MG TAB PO SCH (09:00)
--- NOTE | 2018-03-08 09:40 | NUR ---
PT NOTE [facility] Patient: Brain Hoffman : 1970 Age/Sex: 47/M Unit#: [id number] Room/Bed: 409/A User: Fam Yao PT Date: 03/08/18 08:45 Type: PT Technical Record Therapy day number 1 Evaluation Start Time 08:45 Evaluation Total Time 0 min Subjective Denies pain Pain Scale NUMERIC Pain Intensity 0 (0-10) Patient Stated Goal for Pain Relief 0 (0-10) Pain Level Comment denies pain Pre Treatment Vital Signs Stable Yes - 116/75 Exercise Assessment Label Right Lower Extremity Exercise Type Active ROM Additional Exercise Comments per post-op [place] protocol Supine to Sit Stand by Assist Transfer Sit to Stand Ability Stand by Assist Bed Mobility Sit to Supine Stand by Assist Bed Transfer Ability Contact Guard Assist Chair Transfer Ability Contact Guard Assist Sitting Tolerance 15 min Additional Mobility Comments verbal cues Patient uses wheelchair Not Applicable Gait Assist Levels Contact Guard Assist Assistive Devices Front Wheel Walker Ambulation Distance 200 feet Additional Gait Comments 200' x 2, steady, mild antalgic, reciprocal, shoulder elevation, mild forwa Weight Bearing Assessment Label Right Lower Extremity Weight Bearing Status Weight Bearing as Trevor Stair Climbing Ability Minimum Assist Number of Stairs 4 Stairs Additional Stairs Assist Comments step-to gait pattern, use of B rails, mild unsteady during R stance Static Sitting Balance Good Dynamic Sitting Balance Good Standing Static Balance Good Dynamic Standing Balance Fair plus Additional Balance Assessments Comments FWW Safety Judgement Good Activity Tolerance Good Equipment Present IV pump Post Treatment Pain Intensity 2 0-10 Variance Documentation SEE PT EVAL PT Technical Record Comment PT EVAL Pt is a 47 yo M with PMH of DJD R hip, hypothyroid, hyperlipidemia who is now S/P R [place] on 03/07/18. Precautions: R LE WBAT, "no hip extension for 6 weeks" PLOF: Pt lives with and baby dtr in 1st floor apartment with 2STE and B railings. I with all ADLs/mobility. Pt already owns a FWW. available to assist 04/09 following d/c home. CLOF: VELASQUEZ Rojo cleared pt for PT evaluation. Pt received semi-supine in bed, vitals assessed and stable, agreeable to PT evaluation. Pt educated in R LE WBAT precaution, hip precautions, and purpose of PT evaluation. Pt educated in and issued post-op [place] protocol and performed exercises with good return. Bed mobility, transfer, gait assessment, and stair as described above. Pt returned to room, all needs in reach, no signs of distreess, bed alarm activated. RN notified of pt's status. Recommendation: Pt demosntrates steady, stable gait with use of FWW, able to amb 200' x 2 though requires verbal cues for posture. Pt with mild instability when negotiating steps due to R LE weakness/pain, using B railings and step-to gait pattern. Pt will benefit from additional skilled PT services during LOS to maximize independence prior to d/c, Anticipating home d/c with family assistance as needed and HHPT once cleared by . Pt already owns FWW. 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
[2018-03-08] MEDS ORDERED: KETOROLAC 15 MG INJ IV PRN (09:41)
[2018-03-08] MEDS: SENNA/DOCUSATE NA (8.6MG/50MG) TAB PO SCH (09:58)
--- NOTE | 2018-03-08 13:55 | NUR ---
PT NOTE [facility] Patient: Brain Hoffman : 1970 Age/Sex: 47/M Unit#: [id number] Room/Bed: [facility]/A User: Fam Yao PT Date: 03/08/18 13:30 Type: PT Technical Record Therapy day number 2 Subjective Current complaint of pain Pain Scale NUMERIC Pain Intensity 2 (0-10) Patient Stated Goal for Pain Relief 0 (0-10) Pain Level Comment R hip pain Pre Treatment Vital Signs Stable Yes Supine to Sit Modified Independent Transfer Sit to Stand Ability Modified Independent Bed Mobility Sit to Supine Modified Independent Bed Transfer Ability Supervised Chair Transfer Ability Supervised Toileting Ability Modified Independent Sitting Tolerance 5 min Gait Training Start Time 13:30 Gait Assist Levels Supervised Assistive Devices Front Wheel Walker Ambulation Distance 200 feet Additional Gait Comments 200' x 2, mild antalgic gait Gait Training End Time 13:46 Total Gait Training Treatment Time 16 min (8-127) Weight Bearing Assessment Label Right Lower Extremity Weight Bearing Status Weight Bearing as Trevor Stair Training Start Time 13:46 Stair Climbing Ability Stand by Assist Number of Stairs 8 Stairs Additional Stairs Assist Comments 4 steps x 2 without rest break, B railing, step-to gait pattern Stair Training End Time 13:54 Total Stair Training Time 8 min (8-127) Static Sitting Balance Good Dynamic Sitting Balance Good Standing Static Balance Good Dynamic Standing Balance Fair plus Additional Balance Assessments Comments FWW Safety Judgement Good Activity Tolerance Good Equipment Present A pump Post Treatment Pain Intensity 3 0-10 Variance Documentation SEE PT NOTE Total Treament Time 24 min (8-127) Total Minutes 24 Total Units 2 PT Technical Record Comment PT NOTE S: Pt reported R hip soreness following previous session O: VELASQUEZ Rojo cleared pt for PT session. Pt received semi-supine in bed, agreeable to session. Bed mobiltiy, transfer, gait training, and stair training as described above. Pt guided and educated through curb training. Pt returned to bed, all needs in reach, bed alarm activated, RN notifid of pt's status. A: Pt demonstrates safety with all mobility tasks, able to ambulate total of 400' with FWW, negotiate 8 steps, and negotiate a curb. No further skilled acute care PT needed at this time. 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
--- NOTE | 2018-03-08 15:19 | NUR ---
Discharge: Pt discharged in wheelchair with CUTTER GRINDER, Amy, to family member in car. Pt discharged with all personal belongings. Pt received discharge instructions, patient health summary, instructions for follow-up and [employer]. Pt verbalized understanding. Pt reports he has prescriptions and medical equipment at home. IV removed, no issues. Pt stable at discharge, A&Ox4.Ok to discharge per Sagar.
[2018-03-08] MEDS ORDERED: ZOLPIDEM 5 MG TAB PO PRN (21:00)
== END 2018-03-08 15:10 | disposition home or self-care (01) | DRG 470 ==
LOC: REC 07:58 → MS1 12:46
PROVIDERS: ADMIT Orthopaedic Surgery; ATTEND Orthopaedic Surgery
PROC: 0SR904A Replacement of Right Hip Joint with Ceramic on Polyethylene Synthetic Substitute, Uncemented, Open Approach (ICD-10-PCS; principal; 2018-03-07 09:30)
DX: M16.11 Unilateral primary osteoarthritis, right hip (principal); E03.9 Hypothyroidism, unspecified; J45.909 Unspecified asthma, uncomplicated; E78.5 Hyperlipidemia, unspecified; F41.9 Anxiety disorder, unspecified; F32.9 Major depressive disorder, single episode, unspecified
CPT/HCPCS: 72170; 73530; 85025; 86999; 87086; 88305; 88311; 97116; 97161; C1713; C1776; J0171; J0690; J0735; J1100; J1885; J2175; J2250; J2274; J2405; J2710; J3010; J3370; J7120